=== PATIENT | female | born 1980 | race Caucasian/White ===

== ENCOUNTER 2017-05-23 12:17 | Emergency (ER) | payer OTHER, MEDICAID ==
[2017-05-23 12:28] VITALS: BP 129/78
--- NOTE | 2017-05-23 13:34 | EDM.PDOC ---
ED HPI GENERAL MEDICAL PROBLEM - General Chief Complaint: Upper Extremity Injury/Pain Stated Complaint: RT WRIST INJURY Time Seen by Provider: 05/23/17 13:20 Source of Information: Reports: Patient History Limitations: Reports: No Limitations - History of Present Illness INITIAL COMMENTS - FREE TEXT/NARRATIVE: 36 -year-old female presents for evaluation and treatment of injury to the right wrist. Reportedly the injury occurred while she was holding a drill at work today. She states she was drilling upward. She states that the bit caught and she lost control of the drill causing its sudden jerking sensation of the wrist. She is reporting pain to the right distal wrist and fifth metacarpal. She is also reporting swelling to the fifth metacarpal and the right distal radius. She is reporting numbness and tingling to the hand. No bruising or wounds. Onset: Today Location: Reports: Upper Extremity, Right Treatments LOCAL COORDINATOR: Reports: NSAIDS Right Wrist Pain Score (Numeric/FACES): 4 - Related Data Allergies Allergy/AdvReac Type Severity Reaction Status Date / Time No Known Allergies Allergy Verified 05/23/17 12:29 Home Meds: Home Meds . [No Known Home Meds] 05/23/17 [History] Past Medical History HEENT History: Reports: Impaired Vision Other HEENT History: wears corrective lenses [employer] History: Reports: - Past Surgical History HEENT Surgical History: Reports: Tonsillectomy GI Surgical History: Reports: Cholecystectomy, Hernia, Abdominal Social & Family History - Family History Family Medical History: Noncontributory - Tobacco Use Smoking Status *Q: Former Smoker Used Tobacco, but Quit: Yes Month Tobacco Last Used: 3 years Second Hand Smoke Exposure: No - Caffeine Use Caffeine Use: Reports: Coffee - Recreational Drug Use Recreational Drug Use: No Recreational Drug Type: Reports: Methamphetamine Review of Systems - Review of Systems Review Of Systems: See Below Musculoskeletal: Reports: Hand Pain (right 5th metacarpal and right distal radius), Joint Swelling (right distal radius) Skin: Denies: Bruising Neurological: Reports: Numbness (right hand and wrist) ED EXAM, GENERAL - Physical Exam Exam: See Below Exam Limited By: No Limitations General Appearance: Alert, WD/WN, No Apparent Distress Respiratory/Chest: No Respiratory Distress Cardiovascular: Normal Peripheral Pulses, Regular Rate, Rhythm Peripheral Pulses: 2+: Radial (L), Radial (R) Extremities: Normal Inspection, Normal Range of Motion (full ROM of the right wrist and hand - able to make a fist, flex and extend ), Normal Capillary Refill , Other (minor swelling to right distal radius; tenderness to the right distal radius and right 5th metacarpal; no snuff box tenderness) Neurological: Alert, Oriented, Normal Cognition Psychiatric: Normal Affect, Normal Mood Skin Exam: Warm, Dry, Normal Color. No: Ecchymosis Course - Vital Signs Last Recorded V/S: Last Vital Signs Temp 36.6 C 05/23/17 12:26 Pulse 87 05/23/17 12:26 Resp 18 05/23/17 12:26 BP 129/78 05/23/17 12:26 Pulse Ox 99 05/23/17 12:26 - Radiology Interpretation Free Text/Narrative:: xray of the right wrist impression per Dr. Tarango 1. Normal normalities are appreciated on right wrist exam. X-ray of the right hand impression per Dr. Osullivan 1. No abnormalities are appreciated right hand exam. - Re-Assessments/Exams Free Text/Narrative Re-Assessment/Exam: 05/23/17 14:02 I reviewed the xray results with the patient. Likely sprained wrist. Will place in a wrist splint and follow-up if not much better. Discharge instructions as documented. Departure - Departure Time of Disposition: 14:06 Disposition: Home, Self-Care 01 Condition: Good Clinical Impression: Sprain of wrist, right - Discharge Information Instructions: Wrist Sprain With Rehab[facility] Referrals: Alpa Vasques PA-C [Primary Care Provider] - Forms: ED Department Discharge Additional Instructions: wrist splint on at all times. [id number] Tylenol or Motrin as needed for pain relief. Follow up with your family medicine provider in 2 weeks if your symptoms are not much better. Ice this sore areas 3-4 times a day for 10-15 minutes. Note given for work. Light duty concerning the right hand and wrist. Please return to the ER if your symptoms change or worsen.
--- NOTE | 2017-05-23 14:42 | CR ---
Right wrist: Four views of the right wrist were obtained. Comparison: No previous study. Joint spaces are preserved. No fracture, dislocation or other bony abnormality is seen. Impression: 1. No abnormality is appreciated on right wrist exam. Diagnostic code #1
--- NOTE | 2017-05-23 14:42 | CR ---
Right hand: Four views of the right hand were obtained. Comparison: No previous study. Joint spaces are maintained. No fracture, dislocation or other bony abnormality is seen. Impression: 1. No abnormality is appreciated on right hand exam. Diagnostic code #1
== END 2017-05-23 14:25 | disposition home or self-care (01) ==
LOC: JD.ED 12:17
DX: S63.501A Unspecified sprain of right wrist, initial encounter (principal); Z87.891 Personal history of nicotine dependence; W23.0XXA Caught, crushed, jammed, or pinched between moving objects, initial encounter; Y99.0 Civilian activity done for income or pay
CPT/HCPCS: 73110-26-RT; 73110-RT; 73130-26-RT; 73130-RT; 99283; 99284